=== PATIENT | female | born 1980 | race African-American/Black ===

== ENCOUNTER 2016-08-23 10:10 | Inpatient (IN) | payer MEDICAID ==
[~2016-08-23] VITALS: Ht 165.1 cm; Wt 83.0 kg
[2016-08-23] MEDS ORDERED: OXYTOCIN 30U/ 0.9% NaCL 500ML 500 ML IV ONE (11:06)
[2016-08-23] MEDS: D5%-LACTATED RINGERS 1,000 ML IV SCH ×2 (11:06→19:06)
[2016-08-23] MEDS ORDERED: OXYTOCIN 30U/ 0.9% NaCL 500ML 500 ML IV PRN ×2 (11:06→17:01)
[2016-08-23] MEDS ORDERED: ONDANSETRON 2MG/ML, 2ML IVPush PRN (11:30)
[2016-08-23] MEDS ORDERED: FENTANYL PF 100 MCG/2ML IV PRN (11:30)
[2016-08-23] MEDS ORDERED: FENTANYL PF 100 MCG/2ML IVPush PRN (11:30)
[2016-08-23] MEDS: LACTATED RINGERS 1,000 ML IV SCH ×3 (11:30→14:18)
[2016-08-23] MEDS ORDERED: FENTANYL PF 100 MCG/2ML ONE (14:04)
[2016-08-23] MEDS ORDERED: FENTANYL/BUPIV./NS/PF 250 ML EPIDCONT ONE (14:04)
[2016-08-23] MEDS ORDERED: BUPIVACAINE 0.25% ONE (14:05)
[2016-08-23] MEDS ORDERED: NEWBORN KIT ONE ×2 (16:24→20:47)
[2016-08-23] MEDS ORDERED: OXYTOCIN 30U/ 0.9% NaCL 500ML 500 ML ONE (17:03)
[2016-08-23] MEDS ORDERED: MISOPROSTOL 200 MCG TABLET ONE (22:10)
[2016-08-23] MEDS ORDERED: LIDOCAINE 1%, 20ML ONE (22:10)
[2016-08-24] MEDS: LACTATED RINGERS 1,000 ML IV SCH ×2 (00:07→08:07)
[2016-08-24] MEDS ORDERED: FENTANYL/BUPIV./NS/PF 250 ML EPIDCONT SCH (00:07)
[2016-08-24] MEDS ORDERED: LACTATED RINGERS 1,000 ML IVBOLUS PRN (00:30)
[2016-08-24] MEDS: IBUPROFEN 600 MG TABLET PO PRN ×3 (02:45→14:37)
[2016-08-24] MEDS ORDERED: IBUPROFEN 600 MG TABLET ONE (02:53)
[2016-08-24] MEDS: D5%-LACTATED RINGERS 1,000 ML IV SCH (03:06)
[2016-08-24] MEDS ORDERED: OXYTOCIN 30U/ 0.9% NaCL 500ML 500 ML ONE (03:16)
[2016-08-24] MEDS ORDERED: OXYTOCIN 30U/ 0.9% NaCL 500ML 500 ML IV SCH (03:43)
[2016-08-24] MEDS ORDERED: HYDROcodone/APAP 5/325 TABLET PO PRN (04:00)
[2016-08-24] MEDS ORDERED: ONDANSETRON 2MG/ML, 2ML IV PRN (04:00)
[2016-08-24] MEDS ORDERED: MISOPROSTOL 200 MCG TABLET PO PRN (04:00)
[2016-08-24] MEDS ORDERED: ACETAMINOPHEN 325 MG TABLET PO PRN (04:00)
[2016-08-24 04:55] VITALS: BP 112/72
[2016-08-24 08:01] VITALS: BP 126/72
[2016-08-24] MEDS: DOCUSATE 100 MG CAPSULE PO PRN (08:06)
[2016-08-24] MEDS: PRENATAL VIT/IRON/FA 1 EACH TABLET PO SCH (08:06)
[2016-08-24 12:27] LABS: DIFF TOTAL CELLS COUNTED 100 CELL DIFF
[2016-08-24 12:28] LABS: VERIFY COUNTS? YES
[2016-08-24 20:00] VITALS: BP 123/74
[2016-08-25 00:10] VITALS: BP 109/77
[2016-08-25] MEDS: DOCUSATE 100 MG CAPSULE PO PRN ×3 (00:12→21:34)
[2016-08-25] MEDS: IBUPROFEN 600 MG TABLET PO PRN ×4 (00:12→21:34)
[2016-08-25 08:01] VITALS: BP 102/67
[2016-08-25] MEDS: PRENATAL VIT/IRON/FA 1 EACH TABLET PO SCH (08:17)
[2016-08-25 12:00] VITALS: BP 112/70
[2016-08-25] MEDS: HYDROcodone/APAP 5/325 TABLET PO PRN ×2 (14:22→21:34)
[2016-08-25 19:50] VITALS: BP 105/62
[2016-08-26] MEDS ORDERED: IBUP-1222 PO (03:22)
[2016-08-26] MEDS ORDERED: DOCU-30 PO (03:23)
[2016-08-26] MEDS: HYDROcodone/APAP 5/325 TABLET PO PRN (04:17)
[2016-08-26] MEDS: IBUPROFEN 600 MG TABLET PO PRN (04:17)
[2016-08-26 06:45] VITALS: BP 104/69
[2016-08-26] MEDS ORDERED: HYDR-3240 PO (08:55)
== END 2016-08-26 13:10 | disposition home or self-care (01) | DRG 775 ==
LOC: LDOP 10:10 → LDIP 11:04 → 2NW 08-24 04:41
PROVIDERS: ADMIT Student in an Organized Health Care Education/Training Program; ATTEND Student in an Organized Health Care Education/Training Program
PROC: 0HQ9XZZ Repair Perineum Skin, External Approach (ICD-10-PCS; principal; 2016-08-24)
PROC: 10E0XZZ Delivery of Products of Conception, External Approach (ICD-10-PCS; 2016-08-24)
PROC: 00HU33Z Insertion of Infusion Device into Spinal Canal, Percutaneous Approach (ICD-10-PCS; 2016-08-24)
PROC: 3E0R3CZ (ICD-10-PCS; 2016-08-24)
DX: O76 Abnormality in fetal heart rate and rhythm complicating labor and delivery (principal); O70.0 First degree perineal laceration during delivery; Z37.0 Single live birth; Z3A.39 39 weeks gestation of pregnancy
CPT/HCPCS: 36415; 85025; 86850; 86900; J3010; J3490; J2590; J7120